=== PATIENT | female | born 1985 | race African-American/Black ===

== ENCOUNTER 2016-10-04 10:23 | Emergency (ER) | payer OTHER ==
[~2016-10-04] VITALS: Ht 175.3 cm; Wt 82.0 kg
[2016-10-04 10:25] VITALS: BP 115/69; PULSE 82; RESP 16; TEMP 98.1; O2SAT 99
--- NOTE | 2016-10-04 10:52 | PD ---
HPI Chief Complaint: Cold / Flu Symptoms Time Seen by Provider: 10:52 Travel History International Travel<30 days: No Contact w/Intl Traveler<30days: No Traveled to known affect area: No History of Present Illness HPI 30-year-old female presents to the emergency Department with complaint of sore throat for the last couple days. Denies lump in throat, difficulty swallowing, unusual drooling. Reports painful swallowing. She denies ear pain, nasal congestion, cough. She says her allergies have been acting up since drained and she's been sneezing a lot also for the last couple days. Reports her chest hurts when she sneezes; and only when she sneezes. She denies chest pain, shortness of breath. Denies abdominal pain, nausea, vomiting. Has not taken any medications or tried any treatments to alleviate her symptoms. Has no other medical complaints. No known allergies. No other modifying factors or associated signs or symptoms. PFSH Past Medical History Diminished Hearing: No ?: Not LMP: 09/06/16 : 6 Para: 4 Miscarriage: 1 : 1 Social History Alcohol Use: Yes (occ.) Tobacco Use: No Substance Use: No Allergies-Medications (Allergen,Severity, Reaction): Coded Allergies: No Known Allergies (Unverified , 10/04/16) Reported Meds & Prescriptions Reported Meds & Active Scripts Active No Active Prescriptions or Reported Medications Review of Systems Except as stated in HPI: all other systems reviewed are Neg Physical Exam Narrative GENERAL: Well-nourished, well-developed female patient, in no acute distress; afebrile, nontoxic-appearing SKIN: Warm and dry. No rash. HEAD: Atraumatic. Normocephalic. EYES: Pupils equal and round at 3 mm with brisk reaction. No scleral icterus. No injection or drainage. PERRLA. ENT: Mucosa pink and moist. Oral pharynx with erythema; without exudate or edema. No uvular edema. No uvular, palatal, or tonsillar deviation. Airway patent. EARS: Bilateral pinnae and external canals appear within normal limits. Bilateral tympanic membranes without erythema, dullness or perforation. NECK: Trachea midline. No lymphadenopathy. CHEST: Reproducible tenderness to mid chest over the sternum; without deformity or crepitance. No retractions or use of accessory muscles. CARDIOVASCULAR: Regular rate and rhythm. No murmur appreciated. RESPIRATORY: No accessory muscle use. Clear to auscultation. Breath sounds equal bilaterally. GASTROINTESTINAL: Abdomen soft, non-tender, nondistended. Hepatic and splenic margins not palpable. Bowel sounds are active 4 quadrants. MUSCULOSKELETAL: No obvious deformities. No clubbing. No cyanosis. No edema. NEUROLOGICAL: Awake and alert. Oriented 3. No obvious cranial nerve deficits. Motor grossly within normal limits. Normal speech. Moves all extremities. 5/5 strength to all extremities. PSYCHIATRIC: Appropriate mood and affect; insight and judgment normal. Data Data Last Documented VS Vital Signs Date Time Temp Pulse Resp B/P Pulse Ox O2 Delivery O2 Flow Rate FiO2 10/04/16 10:25 98.1 82 16 115/69 99 Orders Group A Rapid Strep Screen (10/04/16 10:53) Strep Culture (Group A) (10/04/16 11:15) MDM Medical Decision Making Medical Screen Exam Complete: Yes Emergency Medical Condition: Yes Medical Record Reviewed: Yes Differential Diagnosis Seasonal allergies, viral pharyngitis, viral illness, strep pharyngitis Narrative Course 30-year-old female with sore throat and sneezing for the last couple days. Patient is afebrile and nontoxic-appearing. She denies fever, vomiting. She says that when she sneezes her mid chest hurts and it only hurts when she sneezes. There is some reproducible tenderness to the chest wall on palpation. She otherwise denies chest pain, shortness of breath. Rapid strep ordered. 1140: Rapid strep negative. Magic mouthwash and ibuprofen prescribed for home. Patient verbalizes understanding and agreement with treatment plan. Patient is medically cleared and stable for discharge. Discussed reasons to return to the emergency department. Instructed patient to follow up with primary care provider. Patient agrees with treatment plan. The patients vital signs are stable and the patient is stable for outpatient follow-up and treatment. Patient discharged home, stable and in no acute distress. Diagnosis Primary Impression: Viral pharyngitis Referrals: Primary Care Physician Patient Instructions: General Instructions, Pharyngitis (ED) Departure Forms: Tests/Procedures, Work Release Enter return to work date: October 05, 2016 Additional Instructions: [id number] antihistamines as directed and as needed for symptom management Get plenty of sleep/rest Rest your voice Drink plenty of fluids to prevent dehydration Use warm saltwater gargles to soothe throat pain Use an air humidifier/turn off ceiling fans Use throat lozenges as needed for sore throat Use ibuprofen or acetaminophen as needed to relieve pain and fever Follow-up with your primary care provider within 2-4 days Return immediately to the emergency department with worsening of symptoms Med/Other Pt SpecificInfo: Prescription(s) given Scripts Ibuprofen 800 Mg [id number] Mg PO Q6HR PRN (PAIN) #30 TAB Ref 0 Prov:Roxanna Pina 10/04/16 [id number]-Tqx-Alum-Simeth Liq (Magic Mouthwash Pediatric/Adult Liq)60 Ml Susp5 Ml SWISH-SPIT Q3HR PRN (SORE THROAT) #60 ML Ref 0 Each 5mL contains: Diphenydramine 4.5mg, Viscous Lidocaine 2% 10mg, Maalox Advanced Regular Strength 2.7ml Prov:Roxanna Pina 10/04/16 Disposition: 01 DISCHARGE HOME Condition: Stable Roxanna Pina October 04, 2016 10:52
[2016-10-04] MEDS ORDERED: IBUP800T23 PO (11:39)
[2016-10-04] MEDS ORDERED: MAGICPED SWISH-SPIT (11:39)
== END 2016-10-04 12:06 | disposition home or self-care (01) ==
LOC: NEPK 10:23
DX: J02.9 Acute pharyngitis, unspecified (principal); B97.89 Other viral agents as the cause of diseases classified elsewhere; R06.7 Sneezing; R07.89 Other chest pain
CPT/HCPCS: 87081; 87880; 99283

== ENCOUNTER 2016-11-13 16:08 | Emergency (ER) | payer OTHER ==
[~2016-11-13] VITALS: Ht 175.3 cm; Wt 85.0 kg
[2016-11-13 16:08] VITALS: BP 110/77; PULSE 84; RESP 16; TEMP 98.9; O2SAT 98
[~2016-11-13 16:08] MED LIST: IBUP800T23 PO; MAGICPED SWISH-SPIT
--- NOTE | 2016-11-13 16:45 | PD ---
HPI Chief Complaint: Eye Problems/Injury Time Seen by Provider: 16:41 Travel History International Travel<30 days: No Contact w/Intl Traveler<30days: No Traveled to known affect area: No History of Present Illness HPI 30-year-old Afro[place] female presents the emergency department with left eye erythema, discomfort, and drainage this morning. Patient has had a mild headache for the past 3 days. She has no sore throat, sinus drainage, ear pain , cough, fever, or other symptoms. Her youngest child has pink eye as well. Her pain is minimal. She denies any visual changes at this time. No known drug allergies. PFS Past Medical History Diminished Hearing: No ?: Not LMP: 11/06/16 : 6 Para: 4 Miscarriage: 1 : 1 Social History Alcohol Use: Yes (occ.) Tobacco Use: No Substance Use: No Allergies-Medications (Allergen,Severity, Reaction): Coded Allergies: No Known Allergies (Unverified , 10/04/16) Reported Meds & Prescriptions Reported Meds & Active Scripts Active No Active Prescriptions or Reported Medications Review of Systems Except as stated in HPI: all other systems reviewed are Neg General / Constitutional: No: Fever Eyes: Positive: Drainage, Redness, Tearing, No: Diploplia, Blurred Vision, Photophobia, Foreign Body Sensation, Pain, Blind Spots, Visual changes, Blindness HENT: Positive: Headaches, No: Sore Throat, Rhinitis, Rhinorrhea, Congestion, Nosebleed, Neck Stiffness, Neck Pain, Earache Cardiovascular: No: Chest Pain or Discomfort Respiratory: No: Cough, Shortness of Breath Gastrointestinal: No: Abdominal Pain Genitourinary: No: Dysuria Musculoskeletal: No: Pain Skin: No Rash Neurologic: No: Weakness Psychiatric: No: Depression Endocrine: No: Polydipsia Hematologic/Lymphatic: No: Easy Bruising Physical Exam Narrative GENERAL: Patient appears in no acute distress. SKIN: Warm and dry. Normal color. Normal turgor. HEAD: Atraumatic. Normocephalic. No sinus tenderness. EYES: Pupils equal and round. No scleral icterus. Moderate left thigh injection with small amount of purulent drainage. ENT: No nasal bleeding or discharge. Mucous membranes pink and moist. NECK: Trachea midline. No JVD. CARDIOVASCULAR: Regular rate and rhythm. No murmurs gallops or rubs. RESPIRATORY: No accessory muscle use. Clear to auscultation. Breath sounds equal bilaterally. GASTROINTESTINAL: Abdomen soft, non-tender, nondistended. Hepatic and splenic margins not palpable. MUSCULOSKELETAL: Extremities without clubbing, cyanosis, or edema. No obvious deformities. NEUROLOGICAL: Awake and alert. No obvious cranial nerve deficits. Motor grossly within normal limits. Five out of 5 muscle strength in the arms and legs. Normal speech. PSYCHIATRIC: Appropriate mood and affect; insight and judgment normal. Data Data Last Documented VS Vital Signs Date Time Temp Pulse Resp B/P Pulse Ox O2 Delivery O2 Flow Rate FiO2 11/13/16 16:08 98.9 84 16 110/77 98 MDM Medical Decision Making Medical Screen Exam Complete: Yes Emergency Medical Condition: Yes Differential Diagnosis Upper respiratory infection. Sinusitis. Conjunctivitis. Narrative Course Patient is medically stable at time of exam. She will be treated for conjunctivitis. She is given Maxitrol ophthalmic drops 2 drops to the affected eye every 3 hours while awake for the next week. Work note is given. Patient follow-up with her primary care physician or return to emergency department as needed. Diagnosis Primary Impression: Conjunctivitis Qualified Code: H10.32 - Acute bacterial conjunctivitis of left eye Referrals: Primary Care Physician Patient Instructions: Conjunctivitis (ED), General Instructions Departure Forms: Work Release Enter return to work date: Nov 14, 2016 Med/Other Pt SpecificInfo: Prescription(s) given Scripts No Active Prescriptions or Reported Meds Disposition: 01 DISCHARGE HOME Condition: Stable Jori Arrington Nov 13, 2016 16:45
[2016-11-13] MEDS ORDERED: MAXI5O EACH EYE (16:46)
== END 2016-11-13 17:00 | disposition home or self-care (01) ==
LOC: NEPK 16:08
DX: H10.32 Unspecified acute conjunctivitis, left eye (principal)
CPT/HCPCS: 99283

== ENCOUNTER 2017-04-18 13:53 | Emergency (ER) | payer OTHER ==
[~2017-04-18 13:53] MED LIST changes: -IBUP800T23 PO; -MAGICPED SWISH-SPIT; +MAXI5O EACH EYE
[2017-04-18 13:58] VITALS: BP 152/126; PULSE 97; RESP 18; TEMP 98.3; O2SAT 97
--- NOTE | 2017-04-18 14:39 | PD ---
HPI . Nausea Chief Complaint: Nausea Time Seen by Provider: 14:25 Travel History International Travel<30 days: No Contact w/Intl Traveler<30days: No History of Present Illness HPI This patient presents with the chief complaint of nausea. Onset was a week ago. She also complains that she sometimes feels dizzy and sometimes feels short of breath. History Social History Alcohol Use: Yes (occ.) Tobacco Use: No Allergies-Medications (Allergen,Severity, Reaction): Coded Allergies: No Known Allergies (Unverified , 10/04/16) Reported Meds & Prescriptions Reported Meds & Active Scripts Active Maxitrol Opth Drops (Neomycin/Polymyxin/Dexamethasone) 3.5-10,000-0.1 Mg-Units- % Susp 1 Drop EACH EYE Q4H Review of Systems Except as stated in HPI: all other systems reviewed are Neg HENT: Positive: Lightheadedness Respiratory: Positive: Shortness of Breath Gastrointestinal: Positive: Nausea Physical Exam Narrative GENERAL: Awake and alert and in no acute distress. SKIN: Warm and dry with no rash or lesions. HEAD: Normocephalic/atraumatic. EYES: Pupils are equal. Extraocular movements are intact. NECK: Supple with full range of motion. CARDIOVASCULAR: Heart sounds are normal. RESPIRATORY: Lungs are clear with full air movement throughout. ABDOMEN: Soft and nontender. MUSCULOSKELETAL: Atraumatic. NEUROLOGICAL: A and O 3. Cranial nerves are intact. Normal gait. PSYCHIATRIC: Appropriate mood and affect. Data Data Last Documented VS Vital Signs Date Time Temp Pulse Resp B/P (MAP) Pulse Ox O2 Delivery O2 Flow Rate FiO2 04/18/17 13:58 98.3 97 18 152/126 (135) 97 Room Air Orders Orders Ed Urine Pregnancytest Poc (04/18/17 14:25) MDM Medical Screen Exam Complete: Yes Emergency Medical Condition: No Differential Diagnosis Differential diagnosis includes but is not limited to viral gastroenteritis, food poisoning, bowel obstruction, UTI Narrative Course This patient presented with several complaints including nausea, lightheadedness and shortness of breath. Her physical exam is unremarkable. test is negative. A medical screening exam was performed: At the time of evaluation the presenting medical condition was determined not to be of an emergent nature. The patient was given the option of receiving additional care, but declined. Patient was given options for additional community resources from which to obtain care. The Patient Has Been advised to seek medical attention for their presenting complaint. The patient has been advised to return to the ER at any time if an emergent condition develops. Primary Impression: Encounter for medical screening examination Condition: Stable Romina Ding MD Apr 18, 2017 14:39
== END 2017-04-18 14:51 | disposition left against medical advice (07) ==
LOC: NEPK 13:53
DX: R11.0 Nausea (principal); R42 Dizziness and giddiness; R06.02 Shortness of breath
CPT/HCPCS: 84703; 99282

== ENCOUNTER 2017-07-08 11:36 | Emergency (ER) | payer OTHER ==
[~2017-07-08] VITALS: Ht 177.8 cm; Wt 90.0 kg
[2017-07-08 11:37] VITALS: BP 113/71; PULSE 72; RESP 14; TEMP 97.8; O2SAT 100
--- NOTE | 2017-07-08 11:58 | PD ---
HPI Chief Complaint: Back/ Neck Pain or Injury Time Seen by Provider: 11:57 (Jori Arrington) Time Seen by Provider: 11:57 (Valeri Sawyer MD) Travel History International Travel<30 days: No Contact w/Intl Traveler<30days: No Traveled to known affect area: No (Jori Arrington) International Travel<30 days: No Contact w/Intl Traveler<30days: No (Valeri Sawyer MD) History of Present Illness HPI This is a 31-year-old female who presents to the emergency department with right -sided back pain, constant for 4 days, worse with twisting and moving, improved with rest that extends from her buttock up her back. 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 She denies any fevers, chills, vomiting, dysuria, hematuria or other symptoms. She has taken some ibuprofen for it but did not want to mask the pain. (Valeri Sawyer MD) [facility] Past Medical History Medical History: Denies Significant Hx Diminished Hearing: No Tetanus Vaccination: > 5 Years ?: Not LMP: 06/16/17 : 6 Para: 4 Miscarriage: 1 : 1 (Jori Arrington) Past Surgical History Surgical History: No Previous Surgery (Jori Arrington) Social History Alcohol Use: Yes (occ.) Tobacco Use: No Substance Use: No (Jori Arrington) Allergies-Medications (Allergen,Severity, Reaction): Coded Allergies: No Known Allergies (Unverified Adverse Reaction, Unknown, 07/08/17) Reported Meds & Prescriptions Reported Meds & Active Scripts Active No Active Prescriptions or Reported Medications (Valeri Sawyer MD) Review of Systems Except as stated in HPI: all other systems reviewed are Neg (Valeri Sawyer MD) Physical Exam Narrative GENERAL:Well appearing, no acute distress SKIN: Focused skin assessment warm and dry. HEAD: Atraumatic. Normocephalic. EYES: Pupils equal and round. No injection or drainage. ENT: Moist mucous membranes NECK: Trachea midline. CARDIOVASCULAR: Regular rate and rhythm. No murmur appreciated. RESPIRATORY: Clear to auscultation. Breath sounds equal bilaterally. GASTROINTESTINAL: Abdomen soft, non-tender, nondistended. MUSCULOSKELETAL: Tender to palpation along the lower lumbar paraspinal muscles. NEUROLOGICAL: Awake and alert. No obvious cranial nerve deficits. 5 out of 5 strength in the bilateral lower extremities. PSYCHIATRIC: Appropriate mood and affect; insight and judgment normal. (Valeri Sawyer MD) Data Data Last Documented VS Vital Signs Date Time Temp Pulse Resp B/P (MAP) Pulse Ox O2 Delivery O2 Flow Rate FiO2 07/08/17 11:37 97.8 72 14 113/71 (85) 100 (Valeri Sawyer MD) Orders Orders Urinalysis - C+S If Indicated (07/08/17 11:50) Ed Urine Pregnancytest Poc (07/08/17 11:50) Ketorolac Inj (Toradol Inj) (07/08/17 12:00) Orphenadrine Inj (Norflex Inj) (07/08/17 12:00) (Valeri Sawyer MD) Labs Laboratory Tests Test 07/08/17 12:15 Urine Color YELLOW Urine Turbidity CLEAR Urine pH 6.0 Urine Specific [place] 1.026 Urine Protein TRACE mg/dL Urine Glucose (UA) NEG mg/dL Urine Ketones NEG mg/dL Urine Occult Blood TRACE Urine Nitrite NEG Urine Bilirubin NEG Urine Urobilinogen 2.0 MG/DL Urine Leukocyte Esterase NEG Urine RBC 4 /hpf Urine WBC LESS THAN 1 /hpf Urine Squamous Epithelial Cells 3 /hpf Urine Hyaline Casts 1 /lpf Urine Mucus FEW /lpf Microscopic Urinalysis Comment CULT NOT INDICATED (Valeri Sawyer MD) [facility] Medical Decision Making Medical Screen Exam Complete: Yes Emergency Medical Condition: Yes Interpretation(s) Afebrile, no tachycardia, normotensive Urinalysis is negative for infection Differential Diagnosis Musculoskeletal back pain, pyelonephritis, kidney stone, shingles Narrative Course This is a 31-year-old female who presents to the emergency department with right -sided back pain has been going on for 4 days. She has been doing some repetitive twisting motions at work. Her pain is very musculoskeletal in nature. When she twists in the bed she has pain and she is tender over the lumbar paraspinal muscles. Urinalysis demonstrates minimal blood and no infection. I do not think this is renal. I think the patient can be treated empirically for muscle strain. She was given anti-inflammatories and a muscle relaxer and was advised to use heat for comfort. She was told to return to the emergency department if she develops new or worsening symptoms. (Valeri Sawyer MD) Diagnosis Primary Impression: Musculoskeletal back pain Patient Instructions: General Instructions Additional Instructions: If you develop weakness of your legs, difficulty walking, numbness of your legs or your genital or rectal area, loss of your bowel or bladder, or difficulty urinating return to the emergency department immediately. Followup with your primary care physician in one week if your symptoms have not improved. Med/Other Pt SpecificInfo: Prescription(s) given (Valeri Sawyer MD) Scripts Cyclobenzaprine (Flexeril) 10 Mg Tab 10 MG PO TID for Muscle Spasm, #10 TAB 0 Refills Prov: Valeri Sawyer MD 07/08/17 Meloxicam (Meloxicam) 7.5 Mg Tab 7.5 MG PO DAILY for Arthritis Pain for 14 Days, #14 TAB 0 Refills Prov: Valeri Sawyer MD 07/08/17 Disposition: 01 DISCHARGE HOME Condition: Stable Jori Arrington Jul 08, 2017 11:58 Valeri Sawyer MD Jul 08, 2017 12:13
[2017-07-08] MEDS ORDERED: KETOROLAC TROMETHAMINE 60 MG/2 ML (IM) VIAL IM ONE (12:00)
[2017-07-08] MEDS ORDERED: ORPHENADRINE INJ 60 MG/2 ML AMP IM ONE (12:00)
[2017-07-08 12:44] LABS: BILIRUBIN, URINE NEG (NEG); BLOOD, URINE TRACE (NEG); GLUCOSE,URINE NEG (NEG); HYALINE CAST, URINE 1 /lpf (RARE); KETONE, URINE NEG (NEG); MUCUS URINE FEW /lpf (OCC); NITRITE,URINE NEG (NEG); SQUAMOUS EPITHELIAL CELL URINE 3 /hpf (0-5); URINE COLOR YELLOW (YELLW/STRAW); URINE LEUKOCYTE ESTERASE NEG (NEG)
[2017-07-08] MEDS ORDERED: MELO7.5T27 PO (12:59)
[2017-07-08] MEDS ORDERED: CYCL10TA PO (12:59)
== END 2017-07-08 13:06 | disposition home or self-care (01) ==
LOC: NEPD 11:36
DX: M54.9 Dorsalgia, unspecified (principal)
CPT/HCPCS: 81001; 84703; 96372; 99283; J1885; J2360